=== PATIENT | female | born 1945 | race Caucasian/White ===

== ENCOUNTER 2018-01-02 15:38 | Emergency (ER) | payer OTHER ==
[~2018-01-02] VITALS: Ht 170.2 cm; Wt 91.5 kg
[~2018-01-02 15:38] MED LIST: GLCSC500400; OMEG10007 PO; SYN50 PO; [UNRECOGNIZED DRUG - OTHER]
[2018-01-02 15:57] VITALS: O2SAT 94
[2018-01-02 15:58] VITALS: Ht 170.2 cm; Wt 91.5 kg
[2018-01-02 16:05] LABS: BASO % 0.3 %; BASO ABS # 0.03 K/uL (0-0.2); EOS % 1.3 %; EOS ABS # 0.15 K/uL (0-0.5); HEMATOCRIT 45.1 % (37-47); HEMOGLOBIN 15.3 g/dL (12.0-16.0); IG# 0.03 K/uL (0.00-0.02); LYMPH % 15.2 %; LYMPH ABS # 1.73 K/uL (1.2-3.4); MEAN CELL VOLUME 95.8 fL (80-100); MEAN CORPUSCULAR HEMOGLOBIN 32.5 pg (25-34); MEAN CORPUSCULAR HGB CONC 33.9 g/dl (32-36); MEAN PLATELET VOLUME 11.6 fL (7.4-10.4); MONO % 8.1 %; MONO ABS # 0.92 K/uL (0.11-0.59); NEUT % 74.8 %; NEUT ABS # 8.49 K/uL (1.4-6.5); PLATELET COUNT 213 K/uL (130-400); RED CELL DISTRIBUTION WIDTH CV 13.6 % (11.5-14.5); RED CELL DISTRIBUTION WIDTH SD 47.9 fL (36.4-46.3); WHITE BLOOD COUNT 11.35 K/uL (4.8-10.8)
[2018-01-02] MEDS ORDERED: SODIUM CHLORIDE 0.9% 1000ML 1,000 ML IV STA (16:15)
[2018-01-02] MEDS ORDERED: MECLIZINE HCL 25 MG TAB PO STA (16:39)
[2018-01-02] MEDS ORDERED: ONDANSETRON INJ 2 MG/ML 2 ML VIAL IV STA (16:39)
[2018-01-02 16:42] LABS: ALBUMIN 3.4 gm/dl (3.4-5.0); ALKALINE PHOSPHATASE 71 U/L (45-117); ALT/SGPT 24 U/L (12-78); BLOOD UREA NITROGEN 21 mg/dl (7-18); CALCIUM 8.9 mg/dl (8.5-10.1); CARBON DIOXIDE 22 mmol/L (21-32); CKMB 0.6 ng/ml (0.5-3.6); CREATININE 1.01 mg/dl (0.60-1.20); GLUCOSE 131 mg/dl (70-99); SODIUM 139 mmol/L (136-145); TOTAL PROTEIN 7.8 gm/dl (6.4-8.2)
--- NOTE | 2018-01-02 16:47 | EMERGENCY ROOM VISIT NOTE ---
History Report prepared by Rachel: Rick Cruz Under the Supervision of: Dr. Alexandro Xiong M.D. First contact with patient: 15:39 Chief Complaint: SYNCOPE (NEAR SYNCOPE) Stated Complaint: LIGHTHEADED, NEAR SYNCOPE Nursing Triage Summary: pt arrived als from home reported pt was stretching in bed with head full tilt behind her and "almost"passed out. pt has spent several days pt has hx of siatica on the left side pt has no complaints at this time History of Present Illness The patient is a 72 year old female who presents to the Emergency Room with complaints of sudden dizziness which began this morning. The patient reports that she was completing her regular stretches this morning when she sat up and suddenly felt very stiff and lightheaded. The patient states that she has felt dizzy and lightheaded throughout the day. She notes that she feels dizzy while laying down and lightheaded while standing. The patient reports that her symptoms worsen when she sits up suddenly, but subside when she lays down for an extended period of time. She denies any worsening of her symptoms when turning form side to side. The patient notes that she has had vertigo in the past, but does not feel that her present symptoms are similar to previous episodes. She reports that she has eaten today, and took ibuprofen and tramadol last night. Source of History: patient Onset: This morning Position: other (Global. ) Quality: other (Dizziness) Timing: waxes/wanes, other Modifying Factors (Worsening): other (Standing suddenly) Modifying Factors (Relieving): rest Note: Associated Symptoms: Lightheadedness Denies: Worsening symptoms when turning from side to side. Review of Systems See HPI for pertinent positives & negatives. A total of 10 systems reviewed and were otherwise negative. Past Medical & Surgical Medical Problems: (1) Hx of vertigo Family History Family History omitted secondary to age. Social History Smoking Status: Former Smoker Marital Status: Current/Historical Medications Scheduled B-Complex Vitamins (Vitamin B Complex), 1 TAB PO DAILY Ciprofloxacin Hcl (Cipro), 500 MG PO BID Levothyroxine Sodium (Levothyroxine Sodium), 50 MCG PO DAILY Scheduled PRN Meclizine Hcl (Meclizine Hcl), 1 TAB PO TID PRN for Dizziness or Vertigo Oxycodone/Acetaminophen 5MG/325MG (Percocet 5MG/325MG), 1-2 TAB PO Q4H PRN for Pain Allergies Coded Allergies: No Known Allergies (Unverified , 07/06/11) Physical Exam Vital Signs Date Time Temp Pulse Resp B/P (MAP) Pulse Ox O2 Delivery O2 Flow Rate FiO2 01/02/18 20:20 36.7 87 16 126/80 96 01/02/18 19:21 81 16 124/81 94 Room Air 01/02/18 18:08 88 28 94 01/02/18 18:01 141/80 01/02/18 17:38 81 24 99 01/02/18 17:31 144/98 01/02/18 17:16 155/89 01/02/18 16:38 84 19 01/02/18 16:31 130/87 01/02/18 16:09 84 01/02/18 16:08 97 14 01/02/18 16:05 95 169/95 112 154/105 124 128/90 01/02/18 16:01 155/106 01/02/18 15:59 128/90 01/02/18 15:58 36.7 97 18 172/107 94 Room Air 01/02/18 15:58 154/105 01/02/18 15:57 169/95 01/02/18 15:57 94 Room Air 01/02/18 15:43 172/107 Physical Exam GENERAL: Patient is a healthy-appearing well-nourished female HEAD: Normocephalic atraumatic EYES: Ocular movements intact pupils equal and react to light OROPHARYNX mucous membranes are moist no exudates present no erythema or edema present NECK: Supple no nuchal rigidity CHEST: Good equal expansion LUNGS: Clear and equal to auscultation CARDIAC: Normal S1 and S2 ABDOMEN: Soft nontender no guarding BACK: No CVA tenderness EXTREMITIES: No pain upon palpation normal muscle strength in all groups no clubbing cyanosis or edema NEURO: Patient is following commands and answering questions appropriately. Alert and oriented x3 Cranial Nerves 2-12 grossly intact Medical Decision & Procedures ER Provider Diagnostic Interpretation: Radiology results as stated below per my review and radiologist interpretation: CHEST ONE VIEW PORTABLE CLINICAL HISTORY: Pt c/o dizziness dyspnea COMPARISON STUDY: No previous studies for comparison. FINDINGS: The bones soft tissues and hemidiaphragms are normal. The cardiomediastinal silhouette is normal. The lungs are clear. The pulmonary vasculature is normal. IMPRESSION: Negative chest. The above report was generated using voice recognition software. It may contain grammatical, syntax or spelling errors. Electronically signed by: Tang Lopez M.D. 01/02/2018 5:40 PM Dictated Date/Time: 01/02/2018 5:39 PM HEAD WITHOUT CONTRAST (CT) CT DOSE: 537.48 mGy.cm HISTORY: Mental status change Pt c/o severe dizziness TECHNIQUE: Multiaxial CT images of the head were performed without the use of intravenous contrast. A dose lowering technique was utilized adhering to the principles of ALARA. Comparison: None. Findings: The paranasal sinuses and mastoid air cells are clear. The calvarium and skull base are intact. The ventricles and sulci are within normal limits. There is no mass, hematoma, midline shift, or acute infarct. Impression: No acute intracranial abnormality. The above report was generated using voice recognition software. It may contain grammatical, syntax or spelling errors. Electronically signed by: Tang Lopez M.D. 01/02/2018 5:09 PM Dictated Date/Time: 01/02/2018 5:08 PM Laboratory Results 01/02/18 15:50 Red Blood Count 4.71, Mean Corpuscular Volume 95.8, Mean Corpuscular Hemoglobin 32.5, Mean Corpuscular Hemoglobin Concent 33.9, Mean Platelet Volume 11.6, Neutrophils (%) (Auto) 74.8, Lymphocytes (%) (Auto) 15.2, Monocytes (%) (Auto) 8.1, Eosinophils (%) (Auto) 1.3, Basophils (%) (Auto) 0.3, Neutrophils # (Auto) 8.49, Lymphocytes # (Auto) 1.73, Monocytes # (Auto) 0.92, Eosinophils # (Auto) 0.15, Basophils # (Auto) 0.03 01/02/18 15:50 01/02/18 17:55 Test 01/02/18 15:50 01/02/18 15:54 01/02/18 17:18 01/02/18 17:55 White Blood Count 11.35 K/uL (4.8-10.8) Red Blood Count 4.71 M/uL (4.2-5.4) Hemoglobin 15.3 g/dL (12.0-16.0) Hematocrit 45.1 % (37-47) Mean Corpuscular Volume 95.8 fL (80-100) Mean Corpuscular Hemoglobin 32.5 pg (25-34) Mean Corpuscular Hemoglobin Concent 33.9 g/dl (32-36) Platelet Count 213 K/uL (130-400) Mean Platelet Volume 11.6 fL (7.4-10.4) Neutrophils (%) (Auto) 74.8 % Lymphocytes (%) (Auto) 15.2 % Monocytes (%) (Auto) 8.1 % Eosinophils (%) (Auto) 1.3 % Basophils (%) (Auto) 0.3 % Neutrophils # (Auto) 8.49 K/uL (1.4-6.5) Lymphocytes # (Auto) 1.73 K/uL (1.2-3.4) Monocytes # (Auto) 0.92 K/uL (0.11-0.59) Eosinophils # (Auto) 0.15 K/uL (0-0.5) Basophils # (Auto) 0.03 K/uL (0-0.2) RDW Standard Deviation 47.9 fL (36.4-46.3) RDW Coefficient of Variation 13.6 % (11.5-14.5) Immature Granulocyte % (Auto) 0.3 % Immature Granulocyte # (Auto) 0.03 K/uL (0.00-0.02) Anion Gap 12.0 mmol/L (3-11) Est Creatinine Clear Calc Drug Dose 60.2 ml/min Estimated GFR () 65.3 Estimated GFR (Non- 56.4 BUN/Creatinine Ratio 21.2 (10-20) Calcium Level 8.9 mg/dl (8.5-10.1) Total Bilirubin 0.6 mg/dl (0.2-1) Alanine Aminotransferase (ALT/SGPT) 24 U/L (12-78) Alkaline Phosphatase 71 U/L (45-117) Creatine Kinase MB 0.6 ng/ml (0.5-3.6) Creatine Kinase MB Ratio (0-3.0) Troponin I < 0.015 ng/ml (0-0.045) Total Protein 7.8 gm/dl (6.4-8.2) Albumin 3.4 gm/dl (3.4-5.0) Thyroid Stimulating Hormone (TSH) 2.580 uIu/ml (0.300-4.500) Bedside Glucose 124 mg/dl (70-90) Urine Color YELLOW Urine Appearance CLEAR (CLEAR) Urine pH 5.0 (4.5-7.5) Urine Specific [place] 1.009 (1.000-1.030) Urine Protein NEG (NEG) Urine Glucose (UA) NEG (NEG) Urine Ketones NEG (NEG) Urine Occult Blood NEG (NEG) Urine Nitrite NEG (NEG) Urine Bilirubin NEG (NEG) Urine Urobilinogen NEG (NEG) Urine Leukocyte Esterase LARGE (NEG) Urine WBC (Auto) 10-30 /hpf (0-5) Urine RBC (Auto) 0-4 /hpf (0-4) Urine Hyaline Casts (Auto) 1-5 /lpf (0-5) Urine Epithelial Cells (Auto) 20-30 /lpf (0-5) Urine Bacteria (Auto) 1+ (NEG) Direct Bilirubin 0.1 mg/dl (0-0.2) Aspartate Amino Transf (AST/SGOT) 13 U/L (15-37) Total Creatine Kinase 30 U/L (26-192) Labs reviewed by ED physician. Medications Administered Medications (Trade) Dose Ordered Sig/Neel Route Start Time Stop Time Status Last Admin Dose Admin Sodium Chloride 1,000 ml @ 999 mls/hr Q1H1M STAT IV 01/02/18 16:15 01/02/18 17:15 DC 01/02/18 16:15 999 MLS/HR Meclizine HCl (Antivert Tab) 25 mg NOW STAT PO 01/02/18 16:39 01/02/18 16:41 DC 01/02/18 16:39 25 MG Ondansetron HCl (Zofran Inj) 4 mg NOW STAT IV 01/02/18 16:39 01/02/18 16:41 DC 01/02/18 16:39 4 MG Ceftriaxone Sodium (Rocephin Inj) 1 gm NOW STAT IV 01/02/18 18:04 01/02/18 18:05 DC 01/02/18 18:04 1 GM Lorazepam (Ativan Inj) 0.5 mg NOW STAT IV 01/02/18 18:08 01/02/18 18:09 DC 01/02/18 18:22 0.5 MG Hydromorphone HCl (Dilaudid Inj) 1 mg NOW STAT IV 01/02/18 19:50 01/02/18 19:51 DC 01/02/18 19:57 1 MG Dexamethasone Sodium Phosphate (Dexamethasone Inj Pf) 10 mg STK-MED ONCE .ROUTE 01/02/18 19:55 01/02/18 19:56 DC 01/02/18 19:58 10 MG ECG Indication: other (Dizziness) Rate (beats per minute): 99 Rhythm: normal sinus Findings: other (Normal Sinus Rhythym. Rate of 99. Anterior Infarct. No st elevations or depressions. ) ED Course 162: Past medical records reviewed. The patient was evaluated in room A11. A complete history and physical examination was performed. 1615: Ordered Sodium Chloride 1000 ml @ 999 mls/hr 1639: Ordered Zofran Inj 4mg IV and Meclizine HCL 25mg PO. 1730: I reevaluated the patient. On exam I performed a Kaylyn-Hallpike maneuver which was positive on the left side. 1803: Ordered Rocephin Inj 1 gm IV. 1807: Ordered Ativan Inj 0.5 mg IV. 1934:: Upon reexamination the patient is resting in bed. I discussed results and treatment plan with the patient. She verbalizes agreement and understanding. The patient is ready for discharge. Medical Decision Differential diagnosis: Etiologies such as benign positional vertigo, dehydration, hypovolemia, anemia, tumor, infection, hypoglycemia, electrolyte abnormalities, cardiac sources, intracerebral event, toxicologic, neurologic, as well as others were entertained. This is a 72-year-old female who presents emergency department complaining of a number of complaints. The patient reports she was doing exercises on her bed today when she lowered her head back and developed dizziness. The dizziness appears to be consistent with vertigo as she has a positive Sturbridge-Hallpike maneuver on the right. In addition the patient has a history of vertigo in the past. For this reason she was given both Ativan as well as meclizine. Repeat examination revealed improvement patient's symptoms. In addition the patient also appears to have a urinary tract infection and has a normal CAT scan of the head. After sometime the patient was ambulated by nursing however the patient is not complaining of sciatic pain for this reason the patient was given Decadron as well as Dilaudid. I recommended that the patient follow-up with orthopedics for her sciatica. Patient was in agreement with the treatment plan. Medication Reconcilliation Current Medication List: was personally reviewed by me Blood Pressure Screening Patient's blood pressure: Elevated blood pressure Blood pressure disposition: Elevated BP felt to be situational Impression Primary Impression: Vertigo Scribe Attestation The scribe's documentation has been prepared under my direction and personally reviewed by me in its entirety. I confirm that the note above accurately reflects all work, treatment, procedures, and medical decision making performed by me. Departure Information Dispostion Home / Self-Care Prescriptions Oxycodone/Acetaminophen 5MG/325MG (PERCOCET 5MG/325MG) Tab 1-2 TAB PO Q4H Y for Pain, #14 TAB Prov: Alexandro Xiong MD 01/02/18 Meclizine Hcl (MECLIZINE HCL) 25 Mg Tab 1 TAB PO TID Y for Dizziness or Vertigo for 10 Days, #30 TAB Prov: Alexandro Xiong MD 01/02/18 Ciprofloxacin Hcl (CIPRO) 500 Mg Tab 500 MG PO BID for 7 Days, #14 TAB Prov: Alexandro Xiong MD 01/02/[address] M.D. (PCP) Forms HOME CARE DOCUMENTATION FORM, IMPORTANT VISIT INFORMATION Patient Instructions My [facility] Additional Instructions Increase fluids next 48 hours You have been examined and treated today on an emergency basis only. This is not a substitute for, or an effort to provide, complete comprehensive medical care. It is impossible to recognize and treat all injuries or illnesses in a single emergency department visit. It is therefore important that you follow up closely with Dr Lane. Call as soon as possible for an appointment. Thank you for your time and consideration. I look forward to speaking with you again soon. Please don't hesitate to call us if you have any questions.
[2018-01-02] MEDS ORDERED: B-COTAB18 PO (16:53)
[2018-01-02] MEDS ORDERED: LEVO50TA6 PO (16:53)
--- NOTE | 2018-01-02 17:11 | DIAGNOSTIC IMAGING REPORT ---
HEAD WITHOUT CONTRAST (CT) CT DOSE: 537.48 mGy.cm HISTORY: Mental status change Pt c/o severe dizziness TECHNIQUE: Multiaxial CT images of the head were performed without the use of intravenous contrast. A dose lowering technique was utilized adhering to the principles of ALARA. Comparison: None. Findings: The paranasal sinuses and mastoid air cells are clear. The calvarium and skull base are intact. The ventricles and sulci are within normal limits. There is no mass, hematoma, midline shift, or acute infarct. Impression: No acute intracranial abnormality. The above report was generated using voice recognition software. It may contain grammatical, syntax or spelling errors. Electronically signed by: Tang Lopez M.D. 01/02/2018 5:09 PM Dictated Date/Time: 01/02/2018 5:08 PM
--- NOTE | 2018-01-02 17:42 | DIAGNOSTIC IMAGING REPORT ---
CHEST ONE VIEW PORTABLE CLINICAL HISTORY: Pt c/o dizziness dyspnea COMPARISON STUDY: No previous studies for comparison. FINDINGS: The bones soft tissues and hemidiaphragms are normal. The cardiomediastinal silhouette is normal. The lungs are clear. The pulmonary vasculature is normal. IMPRESSION: Negative chest. The above report was generated using voice recognition software. It may contain grammatical, syntax or spelling errors. Electronically signed by: Tang Lopez M.D. 01/02/2018 5:40 PM Dictated Date/Time: 01/02/2018 5:39 PM
[2018-01-02] MEDS ORDERED: CEFTRIAXONE SOD INJ 1 GM ADDVIAL IV STA (18:04)
[2018-01-02] MEDS ORDERED: LORAZEPAM 2 MG/ML 1 ML VIAL IV STA (18:08)
[2018-01-02 18:21] LABS: POTASSIUM 3.9 mmol/L (3.5-5.1)
[2018-01-02] MEDS ORDERED: MECL1TAB42 PO (19:29)
[2018-01-02] MEDS ORDERED: CIPR-255 PO (19:29)
[2018-01-02] MEDS ORDERED: DEXAMETHASONE INJ 10 MG in SYRINGE 0 ML IV STA (19:50)
[2018-01-02] MEDS ORDERED: HYDROmorphone INJ 1 MG/ML SYR IV STA (19:50)
[2018-01-02] MEDS ORDERED: OXYC-57 PO (19:52)
[2018-01-02] MEDS ORDERED: DEXAMETHASONE **PF** INJ 10 MG/ML VIAL ONE (19:55)
[2018-01-02 20:20] VITALS: BP 126/80; PULSE 87; TEMP 36.7; O2SAT 96
== END 2018-01-02 20:21 | disposition home or self-care (01) ==
LOC: EDBD 15:38 → C.EDA 15:39
DX: R42 Dizziness and giddiness (principal); Z87.891 Personal history of nicotine dependence; M54.40 Lumbago with sciatica, unspecified side

== ENCOUNTER 2021-10-14 05:06 | Observation (INO) ==
--- NOTE | 2021-09-15 11:12 | PAT Medication Instructions ---
Medication Instructions Date of Service September 15, 2021 Home Medications acetaminophen 500 mg tablet 1,000 mg PO Q6H PRN atorvastatin 40 mg tablet 40 mg PO QAM cholecalciferol (vitamin D3) 125 mcg (5,000 unit) tablet (Vitamin D3) 125 mcg PO QAM levothyroxine 50 mcg tablet 50 mcg PO QAM vitamin B complex 1 cap PO QAM vitamins A,C,E-ezju-nprwqo 14,320 unit-226 mg-200 unit capsule (PreserVision AREDS) 1 cap PO BID STOP taking 2 weeks before surgery vitamins A,C,R-phob-jrqfao 14,320 unit-226 mg-200 unit capsule (PreserVision AREDS) 1 cap PO BID DO NOT take the morning of surgery cholecalciferol (vitamin D3) 125 mcg (5,000 unit) tablet (Vitamin D3) 125 mcg PO QAM vitamin B complex 1 cap PO QAM Take morning of surgery With a small sip of water, OTHERWISE NOTHING TO EAT OR DRINK AFTER MIDNIGHT: acetaminophen 500 mg tablet 1,000 mg PO Q6H PRN (okay to take up to 4 hours prior to surgery if needed) atorvastatin 40 mg tablet 40 mg PO QAM levothyroxine 50 mcg tablet 50 mcg PO QAM Take evening before surgery acetaminophen 500 mg tablet 1,000 mg PO Q6H PRN (if needed) Other Notes If you have any questions please call us at [phone] or [phone] or [phone] or [phone]
--- NOTE | 2021-09-17 10:30 | Anesthesiology Consultation ---
Date of Service September 17, 2021 Assessment & Plan (1) Encounter for pre-operative examination: - Outpatient joint assessment: Patient is currently scheduled for inpatient pathway. If re-evaluated pending system levels during current pandemic/surgeon wishes to request outpatient pathway, patient is medically acceptable candidate for outpatient joint program from anesthesia standpoint pending surgeon's office assessment of pt motivation/support/completion of same day joint program preop requirements. *Patient expresses her also has significant arthritis and limited ambulation due to joint dysfunction. - COVID screening: Per assessment on 09/17/2021: Travel screen returned from [place] 9 days ago, no known COVID-19 positive contacts or current COVID-19 related symptoms. Patient vaccinated. Surgeon arranging preop COVID testing, scheduled 10/10/2021. Awaiting results. Chart Review Chart Review: Acceptable Risk for Surgery and Patient seen in Pre Admission Testing Teaching & Discussion Pre-Anesthesia Teaching/Discussion Notes: Instructed NPO after midnight before surgery, except medications with 15 cc of water. Medication instructions provided according to the PAT guidelines. History Surgery Operation Date: 10/14/21 07:15 Proposed Procedures p Right Total Knee Arthroplasty - Rashawn Blanco, Height/Weight Height: 5 ft 7 in Weight: 95.2 kg Allergies Allergy/AdvReac Type Severity Reaction Status Date / Time No Known Allergies Allergy Verified 09/15/21 09:01 Medications Home Medications Medication Instructions Recorded Confirmed Last Taken acetaminophen 500 mg tablet 1,000 mg PO Q6H PRN 09/15/21 09/15/21 Unknown atorvastatin 40 mg tablet 40 mg PO QAM 09/15/21 09/15/21 Unknown cholecalciferol (vitamin D3) 125 125 mcg PO QAM 09/15/21 09/15/21 Unknown mcg (5,000 unit) tablet (Vitamin D3) levothyroxine 50 mcg tablet 50 mcg PO QAM 09/15/21 09/15/21 Unknown vitamin B complex 1 cap PO QAM 09/15/21 09/15/21 Unknown vitamins A,C,G-wjur-pwoico 14,320 1 cap PO BID 09/15/21 09/15/21 Unknown unit-226 mg-200 unit capsule (PreserVision AREDS) Past Medical History Medical History Allergic rhinitis reports intermittent cough alleviated with OTC meds, follows with PCP, denies change or worsening Anxiety Arthritis Hyperlipidemia Hypothyroidism Vertigo Hx, occasional flares, last > 1 yr ago Patient denies h/o stroke, seizures, heart attack, heart failure, DM, HTN, blood clots or blood transfusions. Exercise / Class Metabolic Activity II 4-5 Yardwork/Stairs/Walk up hill (no CP or SOB with 1 FOS) Past Family History Family History Brother Family history of diabetes mellitus Past Surgical History Surgical History History of colonoscopy x2 History of herniorrhaphy AGE 7 Past Anesthesia History No Hx of Anesthesia Complications and No Family Hx of Anesthesia Complications History of PONV No Hx of PONV and No Hx of Motion Sickness Social History Smoking Status: Former smoker Do You Dip or Chew Tobacco: No Smoking End Date: QUIT 40+ YRS AGO Hx Alcohol Use: Yes Alcohol type: wine alcohol intake frequency: a few times a week Hx Substance Use: No Review of Systems Snoring per pt's daughter, denies witnessed apneas or sleep studies. Patient denies chest pain, shortness of breath, dyspnea on exertion, reflux, fever, chills, wheezing, or palpitations. Physical Exam Vital Signs Vitals BP 135/81 P 85 TEMP 97.4 SP02 96% on RA RESP 16 Physical Full cervical extension range of motion without pain TMD 3.5 finger breaths Mallampati Score 1 Dentition: intact, missing back right lower tooth, caps/crowns upper right side, upper left side and two implants bottom left, denies loose or chipped teeth Lungs: normal respiratory effort. Clear throughout to auscultation, no adventitious breath sounds Cardiac: regular rate and rhythm, no murmurs noted Carotid arteries: negative bruit bilat Extremities: no distal extremity edema Lab Results Anesthesia Preop Results Results Anesthesia Widget: WBC 6.06 K/uL (4.8-10.8) 09/17/21 Hgb 13.8 g/dL (12.0-16.0) 09/17/21 Hct 41.3 % (37-47) 09/17/21 Plt 199 K/uL (130-400) 09/17/21 Na 142 mmol/L (136-145) 09/17/21 K 3.6 mmol/L (3.5-5.1) 09/17/21 Cl 110 mmol/L (98-107) H 09/17/21 CO2 26 mmol/L (21-32) 09/17/21 BUN 15 mg/dl (7-18) 09/17/21 Creat 0.77 mg/dl (0.6-1.2) 09/17/21 Glucose Level 104 mg/dl (70-99) H 09/17/21 PT 11.0 Seconds (9.0-12.0) 09/17/21 PTT 28.8 Seconds (21.0-31.0) 09/17/21 INR 1.1 (0.9-1.1) 09/17/21 Blood Type O Positive 09/17/21 Antibody Screen NEGATIVE 09/17/21 Testing Electrocardiogram Date: 09/17/21 Normal sinus rhythm, rate 78 bpm. Possible Anterior infarct (cited on or before 02-JAN-2018) Abnormal ECG When compared with ECG of 02-JAN-2018 15:43, No significant change was found Confirmed by Bony Cordova. Chest X-Ray Date: 09/17/21 No acute chest disease.
[2021-10-14] MEDS ORDERED: LR 60ML/HR IV SCH (06:00)
[2021-10-14] MEDS ORDERED: ROPIVACAINE 0.5% HCL/PF 150 MG, BUPIVACAINE 0.75% MPF 20 ML, EPINEPHrine 30MG/30ML (OR ... INFIL SCH (06:00)
[2021-10-14] MEDS ORDERED: LR 500ML BOLUS, THEN 15ML/HR IV SCH (06:00)
[2021-10-14] MEDS ORDERED: TRANEXAMIC ACID 1,000 MG **IV Pre-op IV SCH (06:00)
[2021-10-14] MEDS ORDERED: ceFAZolin 2000MG 2,000 MG/15 ML SYR IV SCH (06:00)
[2021-10-14] MEDS ORDERED: FAMOTIDINE 20 MG TAB PO SCH (06:00)
[2021-10-14] MEDS ORDERED: GABAPENTIN 300 MG CAP PO SCH (06:00)
[2021-10-14] MEDS ORDERED: dexAMETHasone 4 MG TAB PO SCH (06:00)
[2021-10-14] MEDS ORDERED: TRANEXAMIC ACID 1,000 MG **IV Intra-op IV SCH (06:00)
[2021-10-14] MEDS ORDERED: ACETAMINOPHEN 500 MG TAB PO SCH (06:00)
--- NOTE | 2021-10-14 06:19 | History & Physical Report ---
Date of Service October 14, 2021 Assessment & Plan (1) Osteoarthritis of right knee: We will proceed with a right total knee arthroplasty. Postoperatively she will be started on aspirin for DVT prophylaxis and she will be part of her outpatient joint protocol. She will be discharged to home on oral pain medications. She plans to use [employer] starting tomorrow. History of Present Illness Chief Complaint: Osteoarthritis of the right knee. Primary Care Provider: Manasa Moreno DO Jaqueline is a pleasant 76-year-old female has been doing with chronic worsening right knee pain. She cannot keep up with her grandkids. She is becoming more more frustrated with her knee. X-rays and clinical examination have been diagnostic for advanced osteoarthritis of the right knee. After failing years of conservative treatment, including multiple injections, she has elected proceed with a right total knee arthroplasty. Allergies Allergy/AdvReac Type Severity Reaction Status Date / Time No Known Allergies Allergy Verified 10/14/21 05:26 Home Medications Medication Instructions Recorded Confirmed Type acetaminophen 500 mg tablet 1,000 mg PO Q6H PRN 09/15/21 10/14/21 History atorvastatin 40 mg tablet 40 mg PO QAM 09/15/21 10/14/21 History cholecalciferol (vitamin D3) 125 125 mcg PO QAM 09/15/21 10/14/21 History mcg (5,000 unit) tablet (Vitamin D3) levothyroxine 50 mcg tablet 50 mcg PO QAM 09/15/21 10/14/21 History vitamin B complex 1 cap PO QAM 09/15/21 10/14/21 History vitamins A,C,H-sorl-ijjxiq 14,320 1 cap PO BID 09/15/21 10/14/21 History unit-226 mg-200 unit capsule (PreserVision AREDS) Wheeled Walker #1 ea 09/25/21 Rx Past Med/Surg History Medical History Allergic rhinitis reports intermittent cough alleviated with OTC meds, follows with PCP, denies change or worsening Anxiety Arthritis Hyperlipidemia Hypothyroidism Vertigo Hx, occasional flares, last > 1 yr ago Surgical History History of colonoscopy x2 History of herniorrhaphy AGE 7 Family History Brother Family history of diabetes mellitus Social History Smoking Status: Former smoker Smoking End Date: QUIT 40+ YRS AGO; Second Hand Exposure: Yes (PARENTS SMOKED); Do You Dip or Chew Tobacco: No; Hx Alcohol Use: Yes Alcohol type: wine Hx Substance Use: No Preferred Language: Marshallese Communication Ability: Effective Scheduling Agent Required: No Beliefs That Will Affect Care: None Current Living Situation: Spouse current occupational status: retired Other Information That Helps Us Care for You: No Feels Safe at Home: Yes Safety Concerns: Feels Safe At This Time Assistive Devices: Glasses and Special Shoe Assistive Devices Comment: IMPLANTS LOWER SIDES/ORTHOTICS Review of Systems All systems reviewed & are unremarkable except as noted in HPI & below. Physical Exam On physical examination of the right knee, she has good motion of 0 to 120 degrees. She has no instability. She has pain of the distal medial femoral condyle and over the medial joint line Constitutional WD/WN, vitals as above Eyes PERRL, conjunctivae normal, anicteric sclerae ENMT external ear and nose normal, oropharynx normal Neck trachea midline, no thyromegaly Respiratory normal respiratory effort Cardiovascular RRR, no murmur, no edema Gastrointestinal (Abdomen) normal bowel sounds, soft, nontender, no hepatosplenomegaly Psychiatric A+Ox3, euthymic affect Results & Data Results & Data Laboratory Results . Diagnostic Findings X-rays of the right knee show advanced osteoarthritis with joint space narrowing, osteophyte formation, and [id number] articulation. PG Care Time/CCT Total # of Minutes Spent Total Time Spent with Patient: Total time spent is greater than 50% in coordination of care (as documented) at patient's floor/unit and/or counseling patient: Coding Level of Care Code None Diagnoses Osteoarthritis of right knee M17.11
[2021-10-14] MEDS ORDERED: ROPIVACAINE 0.5% 5 MG/ML 30 ML VIAL ONE (06:21)
[2021-10-14] MEDS ORDERED: LIDOCAINE 2%/EPINEPHRINE 1:200,000 20 ML SDV ONE (06:21)
[2021-10-14] MEDS ORDERED: ORTHO JOINT ANESTHETIC ONE (06:29)
[2021-10-14] MEDS ORDERED: MIDAZOLAM HCL 1 MG/ML 2ML VIAL ONE (06:36)
[2021-10-14] MEDS ORDERED: KETAMINE 50 MG/5 ML SYRINGE ONE (06:37)
[2021-10-14] MEDS ORDERED: ePHEDrine sulfate 50 MG/ML AMP IV PRN (07:04)
[2021-10-14] MEDS ORDERED: ATROPINE SULFATE 0.1 MG/ML 10ML SYR IV PRN (07:04)
[2021-10-14] MEDS ORDERED: PROMETHAZINE HCL 6.25 MG in SODIUM CHLORIDE 0.9% 50 ML IV PRN (07:04)
[2021-10-14] MEDS ORDERED: ONDANSETRON INJ 2 MG/ML 2 ML VIAL IV PRN ×2 (07:04→16:53)
[2021-10-14] MEDS ORDERED: HYDROmorphone INJ 1 MG/ML SYRINGE IV PRN (07:04)
[2021-10-14] MEDS ORDERED: KETOROLAC 30 MG/ML VIAL IV PRN (07:04)
[2021-10-14] MEDS ORDERED: GLYCOPYRROLATE 0.2 MG/ML VIAL ONE (07:26)
[2021-10-14] MEDS ORDERED: PROPOFOL IV EMULSION 10 MG/ML 20 ML VIAL IV ONE (07:26)
[2021-10-14] MEDS ORDERED: ONDANSETRON INJ 2 MG/ML 2 ML VIAL ONE (07:26)
[2021-10-14] MEDS ORDERED: LIDOCAINE 2% 2 ML VIAL/AMP(20MG/ML) INFIL ONE (07:26)
[2021-10-14] MEDS ORDERED: ESMOLOL HCL INJ 10 MG/ML 10ML VIAL IV ONE (07:49)
[2021-10-14] MEDS ORDERED: KETOROLAC 30 MG/ML VIAL ONE (08:24)
--- NOTE | 2021-10-14 08:26 | Operative Report ---
PG Post Operative Report Pre & Post Diagnosis Operation Date: 10/14/21 07:00 Pre-Op Diagnosis: Degenerative Joint Disease Right Knee Post-Op Diagnosis: Degenerative Joint Disease Right Knee I identified the patient and participated in the time-out.: Yes Procedure Operation Date: 10/14/21 07:00 Actual Procedures p Right Total Knee Arthroplasty, Cemented(Right) - Rashawn Blanco DO Surgeon Rashawn Blanco DO [employer] Rashawn Donato PAC Estimated Blood Loss 10 Findings Consistent with Post-Op Diagnosis Specimens Right femoral and tibial bone Complications none Disposition Disposition: Recovery Room Indications Jaqueline is a pleasant 76-year-old female who is been dealing with chronic increasing right knee pain. X-rays and clinical examination have been diagnostic for advanced osteoarthritis of the right knee. After failing conservative treatment, she has elected to proceed with a right total knee arthroplasty. Description of Procedure Implants used: I used a Titus Persona total knee arthroplasty system with a size 8 standard PS femur, E tibia with a 30 mm stem, 28 oval patella, and a size 12 CPS bearing. All components were cemented in place with Biomet cement. Jaqueline arrived [facility] for the above procedure. She was seen in the preoperative holding area and the operative extremity was identified and signed. She was given a preoperative antibiotic, TXA, and epidural anesthetic and an adductor nerve block. She was taken back to the operating room and laid on the table in supine position. She was given basic sedation. The operative knee was then prepped and draped in sterile fashion. A timeout was done, and the patient and the operative extremity was properly identified. A midline incision was made directly over the patella. Dissection was taken down to the extensor mechanism. A subvastus arthrotomy was used. The medial retinaculum was released and the fat pad was mostly excised. The knee was flexed and the ACL, PCL, and meniscus were removed. A drill was sent down the center of the femoral canal followed by an intramedullary silvia. Off that silvia a distal femoral cutting block was placed. 9 mm was resected off the distal femur at 5 of valgus. A posterior referencing AP sizing guide was then placed on the distal femur. The femur measured to be a size 8. 2 drill holes were placed in 3 of external rotation. A 4-in-1 cutting block was then impacted into place. Anterior, posterior, and chamfer cuts were then made. The proximal tibia was then exposed. An external tibial alignment guide was placed. A tibial cut guide was then anchored in place and the proximal tibia was then resected. The posterior aspect of the knee was then opened up and any additional meniscus fragments and osteophytes were removed. The tibia measured to be a size D. The tibial plate was then placed in the appropriate rotation and the tibia was drilled and punched. Trial components were then placed. I used a size 12 CPS polyethylene insert. The knee was brought through a full range of motion and felt to be stable. The peg holes for the femoral component were then drilled. The patella was then everted and 9 mm was resected off the posterior aspect of the patella. The patella measured to be a size 28 oval. 3 peg holes were then drilled. A trial patella was placed. The knee was once again brought through a full range of motion and felt to be stable. Trial components were then removed. The surrounding soft tissues were injected with 100 cc of an orthopedic pain control cocktail. All components were then cemented into place with Biomet cement. The final polyethylene insert was then snapped into place. Once cement was dry the tourniquet was deflated. Hemostasis was obtained. A dilute betadyne lavage was then done for 3 minutes. The joint was then irrigated with normal saline solution. The subvastus arthrotomy was then closed with #1 Vicryl suture. The skin was closed with 2-0 Vicryl, 3-0V lock suture, and christine. A soft compressive dressing was placed. She was then transferred to a hospital bed and taken to the postanesthesia care unit in stable condition. She tolerated the procedure well. Rashawn Donato PA-C, was present for the entire procedure. He was critical for patient positioning, prepping, draping, retraction exposure, wound closure and application of sterile dressing. I attest to the content of the Intraoperative Record and any orders documented therein. Any exceptions are noted below.
--- NOTE | 2021-10-14 09:07 | XRay Report ---
XR knee RT 1 or 2V routine CLINICAL HISTORY: Status post right total knee replacement. COMPARISON STUDY: No previous studies for comparison. TECHNIQUE: 2 right knee views FINDINGS: The patient is status post total knee replacement. The prosthetic components are in anatomi c alignment with no acute abnormality seen. Minimal air is present within the soft tissues from the p rocedure. Skin christine are seen anteriorly. IMPRESSION: Status post total knee replacement ACT 112: Negative or not required by law. Electronically signed by: Leopoldo Lopez M.D. 10/14/2021 9:06 AM
--- NOTE | 2021-10-14 09:18 | Anesthesia Procedure Note ---
Date of Service October 14, 2021 Anesthesia Post Epidural Note Vital Signs Vital Signs: Temp Pulse Resp BP Pulse Ox 36.9 C 82 14 108/76 96 10/14/21 09:15 10/14/21 09:15 10/14/21 09:15 10/14/21 09:15 10/14/21 09:15 Notes Mental Status: alert / awake / arousable and participated in evaluation Nausea / Vomiting: adequately controlled Pain: adequately controlled Airway Patency, RR, SpO2: stable & adequate BP & HR: stable & adequate Hydration State: stable & adequate Neuraxial Anesthesia: was administered and sensory block is resolving Anesthetic Complications: no major complications apparent Epidural: Removed without complications and With tip intact
--- NOTE | 2021-10-14 09:18 | Anesthesiology Progress Note ---
Date of Service October 14, 2021 Anesthesia Post Procedure Vital Signs Vital Signs: Temp Pulse Pulse Resp BP Pulse Ox 10/14/21 09:05 96 H 16 117/78 95 10/14/21 08:55 93 H 18 130/73 94 10/14/21 08:45 89 16 108/53 L 94 10/14/21 08:35 36.1 C L 98 H 16 125/71 91 10/14/21 06:00 36.5 C 75 18 161/80 H 95 10/14/21 05:20 36.5 C 85 18 158/88 H 95 Transfer of Care Handoff Completed per policy Notes Mental Status: alert / awake / arousable Patient Amnestic to Procedure: Yes Nausea / Vomiting: adequately controlled Pain: adequately controlled Airway Patency, RR, SpO2: stable & adequate BP & HR: stable & adequate Hydration State: stable & adequate Anesthetic Complications: no major complications apparent
[2021-10-14] MEDS ORDERED: bisacodyL 10 MG SUPP PR PRN (16:53)
[2021-10-14] MEDS ORDERED: NALOXONE HCL 0.4 MG/1 ML VIAL/CARP IV PRN (16:53)
[2021-10-14] MEDS ORDERED: HYDROmorphone INJ 0.5 MG/0.5 ML SYR IV PRN (16:53)
[2021-10-14] MEDS ORDERED: MAGNESIUM HYDROXIDE SUSP 30 ML UDC PO PRN (16:53)
[2021-10-14] MEDS ORDERED: METOCLOPRAMIDE HCL INJ 5 MG/ML 2 ML VIAL IV PRN (16:53)
[2021-10-14] MEDS ORDERED: oxyCODONE HCL IR 5 MG TAB (IMMEDIATE RELEASE) PO PRN (16:53)
[2021-10-14] MEDS: SODIUM CHLORIDE 0.9% 1000ML 1,000 ML IV SCH (18:40)
[2021-10-14] MEDS: KETOROLAC TROMETHAMINE 15 MG/ML VIAL IV SCH ×2 (18:40→23:09)
[2021-10-14] MEDS: DOCUSATE SODIUM 100 MG CAP PO SCH (20:35)
[2021-10-14] MEDS: ceFAZolin 2000MG 2,000 MG/15 ML SYR IV SCH (20:35)
[2021-10-14] MEDS: ASPIRIN 81 MG ECTAB PO SCH (20:35)
[2021-10-14] MEDS ORDERED: SENNA 8.6 MG TAB PO SCH (21:00)
[2021-10-14] MEDS: oxyCODONE/ACETAMINOPHEN 5mg/325mg TAB PO PRN (23:09)
[2021-10-15] MEDS: SODIUM CHLORIDE 0.9% 1000ML 1,000 ML IV SCH (03:54)
[2021-10-15] MEDS: ceFAZolin 2000MG 2,000 MG/15 ML SYR IV SCH (03:55)
[2021-10-15] MEDS: oxyCODONE/ACETAMINOPHEN 5mg/325mg TAB PO PRN (04:19)
[2021-10-15] MEDS: KETOROLAC TROMETHAMINE 15 MG/ML VIAL IV SCH (06:14)
--- NOTE | 2021-10-15 06:42 | Orthopedic Progress Note ---
Date of Service October 15, 2021 Assessment & Plan (1) Status post right knee replacement: Overall she is doing well. She has been up and ambulating to the bathroom. She regained the dorsiflexion of her right foot. She will be seen by physical therapy today for ambulation and range of motion exercises. She is on aspirin for DVT prophylaxis. She can be discharged home later today. She will follow-up with orthopedics in 2 weeks. Zoran Parsons was seen and examined at bedside this morning. Overall she is doing very well. She regained the dorsiflexion of her right foot. She has no complaints. Review of Systems All systems reviewed & are unremarkable except as noted in HPI & below. Physical Exam On physical examination of the right knee, the dressing is clean and dry. An ice pack is in place. She has active dorsiflexion plantarflexion of her right ankle.. Results & Data Results & Data Laboratory Results . Diagnostic Findings Postoperative x-rays of the right knee show the prosthesis to be in anatomic alignment without any evidence of fracture, dislocation, or loosening. PG Care Time/CCT Total # of Minutes Spent Total Time Spent with Patient: Total time spent is greater than 50% in coordination of care (as documented) at patient's floor/unit and/or counseling patient: Coding Level of Care Code 40035 Post Operative Follow-Up Diagnoses Status post right knee replacement Z96.651
--- NOTE | 2021-10-15 06:43 | Discharge Summary ---
Date of Service October 15, 2021 Admission HPI (Per Admitting) Jaqueline is a pleasant 76-year-old female has been doing with chronic worsening right knee pain. She cannot keep up with her grandkids. She is becoming more more frustrated with her knee. X-rays and clinical examination have been diagnostic for advanced osteoarthritis of the right knee. After failing years of conservative treatment, including multiple injections, she has elected proceed with a right total knee arthroplasty. Admission Exam (Per Admitting) On physical examination of the right knee, she has good motion of 0 to 120 degrees. She has no instability. She has pain of the distal medial femoral condyle and over the medial joint line Principal Diagnosis Same as "Discharge Diagnosis" noted below under Discharge Instructions. Discharge Exam On physical examination of the right knee, the dressing is clean and dry. An ice pack is in place. She has active dorsiflexion plantarflexion of her right ankle.. Discharge Data Procedures Performed Operation Date: 10/14/21 07:00 Actual Procedures p Right Total Knee Arthroplasty, Cemented(Right) - Rashawn Blanco DO Ordered Studies 10/14/21 05:00 US - OR guided needle placemen Routine Hospital Course (1) Status post right knee replacement: On October 14, [address] [facility] and underwent a right knee replacement without complication. She had an epidural anesthetic and a right adductor block. Postoperatively she was supposed to be part of our outpatient joint protocol. Unfortunately she was having difficulty with dorsiflexion of her right foot. She was unable to participate with therapy because of that. She was then admitted overnight. On postop day #1 dorsiflexion returned in her foot. Her vital signs were stable and her pain was well controlled. She was able to participate well with physical therapy doing ambulation and range of motion exercises. She was then discharged home. She will follow-up with orthopedics in 2 weeks. PG Care Time/CCT Total # of Minutes Spent Total Time Spent with Patient: Total time spent is greater than 50% in coordination of care (as documented) at patient's floor/unit and/or counseling patient: Discharge Plan Discharge Items Reason For Visit: DJD Right Knee Discharge Diagnosis: Right knee replacement Activity: As commented below Call non-emergency contact if: your wound has increased redness and your wound has increased drainage Follow-up/Referrals: [facility] [Outside] (as per surgeon's office) Manasa Moreno, DO [Primary Care Provider] - Addtl Attending Provider Instructions: Activity and Therapy Recommendations: * If you are using [facility] then therapy will be provided at your home until they feel you have accomplished all of your goals. * If you are using [facility] then Physical Therapy will be provided until they feel you are ready to start Outpatient Physical Therapy. * If you are not using home therapy then Outpatient Physical Therapy should start about 3-5 days from your day of surgery. Therapy will last about 6-10 weeks * It is important not to put a pillow under your knee when you are relaxing or sleeping. It is just as important to make sure you are getting your knee perfectly straight as it is to regain your knee bend. * You were shown a series of exercises in the hospital. Do these exercises three times each day including the exercises you were shown in physical therapy. * Get up and walk several times each day. For the first four weeks, try not to stand or walk for more than one hour at a time. If you do stand or walk for more than one hour, you will not hurt anything, but your leg will likely swell. * As you feel comfortable, you may change from the walker or crutches to a cane and then to independent walking. Medications: * Narcotic You will likely be sent home from the hospital with a prescription for the narcotic pain medication that worked best throughout your stay. * Aspirin Most patients will be required to take Aspirin 81mg twice a day for 6 weeks after surgery. This is obtained [id number] and a prescription is not necessary. * Other medications may be prescribed for specific circumstances. If you have any questions, please call the office at . * Resume previous home medications unless otherwise instructed TEDs/Elastic Stockings: The white elastic stockings help limit swelling and prevent blood clots from forming in your legs.~ The more you wear them, the more they work. Wear them for six weeks. Dressing Care: The dressing can be changed after physical therapy on postop day #1. Daily dry dressing changes for a few days, especially if the incision is still draining some. If the incision is not draining then you may leave the christine open to air. If there is a little bit of drainage or if the christine are getting stuck on your clothing then cover the incision with a dry dressing. The christine will be removed at your 2 week follow-up appointment. Showering: You may shower 5 days from the day of surgery as long as the incision is no longer draining. You may shower with the christine exposed. Let soapy water run over the christine and pat them dry. Do not scrub or soak the incision. Things To Watch For: * Drainage from the incision site that occurs more than one week after your surgery. * Increased redness at the incision site. * Fever above 102 degrees Fahrenheit. * Unusual chest pain or shortness of breath. * Call [facility] at with any of the above problems Follow-Up Visit: Follow-up with Dr. Blanco's PA (Rashawn Donato) 2-3 weeks after your day of surgery. He will remove your christine and answer any questions. If you have any additional questions or concerns, Dr Blanco is usually in the office at the same time and will be available An appointment was probably scheduled when you signed-up for surgery in the office. If you have any questions call Office Instructions: More detailed instructions as well as Frequently Asked Questions were provided in a folder by our office when you signed-up for surgery. Please review these instructions when you get home. If you have any further questions or concerns, please feel free to call the office at [phone] Pending Studies at Discharge: No Stand-Alone Forms: Anesthesia/Sedation, Adult, My [facility] Medications and DC Order Prescriptions: New oxycodone-acetaminophen 5-325 mg tablet 1 tab PO Q6H PRN (Reason: pain) Qty: 30 RF: 0 ondansetron HCl [Zofran] 4 mg tablet 4 mg PO Q8H PRN (Reason: nausea and vomiting) Qty: 10 RF: 0 celecoxib [Celebrex] 200 mg capsule 200 mg PO BID 14 Days Qty: 28 RF: 0 aspirin [Adult Aspirin Regimen] 81 mg tablet,delayed release (DR/EC) 81 mg PO BID Qty: 84 RF: 0 Continued (DME) Wheeled Walker Misc See Rx Instructions .MEDSUPPLY Qty: 1 RF: 0 atorvastatin 40 mg Tablet 40 mg PO QAM RF: 0 levothyroxine 50 mcg Tablet 50 mcg PO QAM RF: 0 vitamin B complex Capsule 1 cap PO QAM RF: 0 PreserVision AREDS [id number] Capsule 1 cap PO BID RF: 0 cholecalciferol (vitamin D3) [Vitamin D3] 125 mcg (5,000 unit) Tablet 125 mcg PO QAM RF: 0 acetaminophen 500 mg Tablet 1,000 mg PO Q6H PRN (Reason: Pain) RF: 0 Krames/Other Patient Handouts: DVT Post Op Prevention Admission Data Admit Date/Time: 10/14/21 13:30 Attending Provider: Rashawn Blanco Admit Provider: Rashawn Blanco Primary Care Provider: Manasa Moreno
[2021-10-15] MEDS: DOCUSATE SODIUM 100 MG CAP PO SCH (07:50)
[2021-10-15] MEDS: ASPIRIN 81 MG ECTAB PO SCH (07:50)
[2021-10-15] MEDS ORDERED: dexAMETHasone 4 MG TAB PO SCH (08:00)
[2021-10-15] MEDS ORDERED: MULTIVITAMIN TAB PO SCH (09:00)
== END 2021-10-15 11:48 | disposition home health service (06) ==
LOC: ASU 05:06 → 3E 05:06

== ENCOUNTER 2025-05-18 07:51 | Observation (INO) ==
--- NOTE | 2025-03-23 12:18 | PAT Medication Instructions ---
Medication Instructions Date of Service March 23, 2025 Home Medications atorvastatin 40 mg tablet 40 mg PO QAM levothyroxine 50 mcg tablet 50 mcg PO QAM vitamin B complex 1 cap PO QAM PreserVision AREDS 1 cap PO BID amoxicillin 500 mg tablet 2,000 mg PO ONCE PRN prophylaxis apixaban 5 mg tablet (Eliquis) 5 mg PO BID azathioprine 50 mg tablet (Imuran) 100 mg PO QAM metoprolol tartrate 25 mg tablet 25 mg PO BID Continue as directed amoxicillin 500 mg tablet 2,000 mg PO ONCE PRN prophylaxis ASK your prescriber and surgeon apixaban 5 mg tablet (Eliquis) 5 mg PO BID azathioprine 50 mg tablet (Imuran) 100 mg PO QAM STOP taking 2 weeks before surgery (or as soon as possible if surgery is within 2 weeks) PreserVision AREDS 1 cap PO BID DO NOT take the morning of surgery vitamin B complex 1 cap PO QAM Take morning of surgery With a small sip of water, OTHERWISE NOTHING TO EAT OR DRINK AFTER MIDNIGHT: atorvastatin 40 mg tablet 40 mg PO QAM levothyroxine 50 mcg tablet 50 mcg PO QAM metoprolol tartrate 25 mg tablet 25 mg PO BID Take evening before surgery metoprolol tartrate 25 mg tablet 25 mg PO BID Other Notes If you have any questions please call us at [phone] or [phone] or [phone] or [phone]
--- NOTE | 2025-04-04 12:00 | Anesthesiology Consultation ---
Date of Service April 04, 2025 Assessment & Plan (1) Encounter for pre-operative examination: - patient reports awareness during right TKA and that did not go home same day due to persistence of spinal block. She expresses would prefer spinal block with sedation for upcoming procedure, plans to have ultimate discussion with assigned anesthesiologist nilam CARTER. SAB and epidural are marked in right column, but SAB is marked in neuraxial area of records. L3-L4 2 attempts + PNB. There is separate epidural procedure note. "Pt had coughing episode without events. O2 sat decreased 85% propofol stopped. Mask vent...O2 sat 98%. Dr. Urbina to room. HR 130. BP stable. Treated with [?]. Patient denies any complaints." - cardiology clearance 03/22/25 [facility]: "...Reasonable from a cardiac perspective to hold apixaban for 2-3 days prior to procedure..." - cardiology office visit 12/01/24 [facility]: "...referred to EP due to abnormal zio patch...paroxysmal atrial flutter started on metoprolol and eliquis...was having nervous like spells...would stop and do some deep breathing and this would calm everything down...one night she woke up in her sleep with the palpitations and it took a lot longer to calm down...wore a zio patch for these symptoms and did have some of the symptoms when wearing the monitor...started on metoprolol and eliquis due to the monitor not being able to exclude atrial flutter and this has improved the symptoms...EP f/u 6 months..." - Patient and her expressed preference that she be planned to remain overnight for this procedure. Chart Review Chart Review: Acceptable Risk for Surgery and Patient seen in Pre Admission Testing Teaching & Discussion Pre-Anesthesia Teaching/Discussion Notes: Instructed NPO after midnight before surgery, except medications with 15 cc of water. Medication instructions provided according to the PAT guidelines. History Surgery Operation Date: 05/18/25 08:00 Proposed Procedures p Left Total Knee Arthroplasty - Rashawn Blanco DO Height/Weight Height: 5 ft 5 in Weight: 90.3 kg Allergies Allergy/AdvReac Type Severity Reaction Status Date / Time No Known Allergies Allergy Verified 03/22/25 13:29 Medications Home Medications Medication Instructions Recorded Confirmed Last Taken atorvastatin 40 mg tablet 40 mg PO QAM 09/15/21 03/22/25 05/19/22 levothyroxine 50 mcg tablet 50 mcg PO QAM 09/15/21 03/22/25 05/19/22 vitamin B complex 1 cap PO QAM 09/15/21 03/22/25 05/19/22 vitamins A,C,Z-ghpa-ipezlp 4,296 1 cap PO BID 09/15/21 03/22/25 05/19/22 mcg-226 mg-90 mg capsule (PreserVision AREDS) amoxicillin 500 mg tablet 2,000 mg PO ONCE PRN prophylaxis 04/30/22 03/22/25 Unknown apixaban 5 mg tablet (Eliquis) 5 mg PO BID 03/22/25 03/22/25 Unknown azathioprine 50 mg tablet (Imuran) 100 mg PO QAM 03/22/25 03/22/25 Unknown metoprolol tartrate 25 mg tablet 25 mg PO BID 03/22/25 03/22/25 Unknown Additional Notes: It was corrected on provided medication instructions that apixaban is to be stopped 72 hours prior to surgery if okay with prescriber, patient is to call prescriber. She verbalized understanding and denied questions or concerns. Past Medical History Medical History (Updated 04/04/25 @ 14:14 by Angelina De Leon PA-C) Anxiety Arthritis Atrial flutter reason for Eliquis, controlled w/ Metoprolol, follows w/ Dr Soria Autoimmune hepatitis currently being treated w/ Imuran Awareness under anesthesia w/ knee replacement History of skin cancer s/p multiple excisions face, back and legs Hyperlipidemia Hypothyroidism Vertigo Hx, occasional flares, no recent issues Patient denies h/o stroke, seizures, heart attack, heart failure, DM, HTN, blood clots/DVTs or blood transfusions. Exercise / Class Metabolic Activity II 4-5 Yardwork/Stairs/Walk up hill (denies chest discomfort or shortness of breath with one flight of stairs) Past Family History Family History Brother Family history of diabetes mellitus Past Surgical History Surgical History (Updated 04/04/25 @ 14:14 by Angelina De Leon PA-C) History of colonoscopy x2 History of herniorrhaphy AGE 7 History of right cataract extraction Hx of left cataract extraction Hx of total knee replacement (2020) rt. Past Anesthesia History No Family Hx of Anesthesia Complications and Other (awareness during right TKA) History of PONV No Hx of PONV and No Hx of Motion Sickness Social History Smoking Status: Former smoker tobacco type: cigarettes Do You Dip or Chew Tobacco: No Smoking End Date: quit 50 yrs ago Hx Alcohol Use: No (none since liver dx) Alcohol type: wine and hard liquor alcohol intake frequency: a few times a week Hx Substance Use: No substance use type: does not use Review of Systems Patient denies chest pain, shortness of breath, dyspnea on exertion, snoring, witnessed apneas, reflux, fever, chills, cough, wheezing, or palpitations. Physical Exam Vital Signs Vitals BP 135/83 P 62 TEMP 98.2 SP02 94% on RA RESP 18 Physical Patient resting comfortably in chair in no acute distress, alert and oriented, responding appropriately throughout visit Full cervical extension range of motion without pain TMD 3.5 finger breadths Mallampati Score 1 Dentition: several caps/crowns, implants, denies chipped or loose teeth, or bridges Lungs: normal respiratory effort. Good air movement, clear throughout to auscultation, no adventitious breath sounds Cardiac: regular rate and rhythm, no murmurs noted Carotid arteries: negative bruit bilat Lab Results Anesthesia Preop Results Results Anesthesia Widget: WBC 6.12 K/ul (4.8-10.8) 04/04/25 Hgb 12.6 g/dl (12.0-16.0) 04/04/25 Hct 37.1 % (37.0-47.0) 04/04/25 Plt 152 K/uL (130-400) 04/04/25 Na 143 mmol/L (136-145) 04/04/25 K 3.6 mmol/L (3.5-5.1) 04/04/25 Cl 109 mmol/L (98-107) H 04/04/25 CO2 28 mmol/L (21-32) 04/04/25 BUN 16 mg/dl (6-23) 04/04/25 Creat 0.76 mg/dl (0.6-1.2) 04/04/25 Glucose Level 97 mg/dl (70-99(Fasting)) 04/04/25 PT 11.9 Seconds (9.0-12.0) 04/04/25 PTT 32 Seconds (21-31) H 04/04/25 INR 1.1 (0.9-1.1) 04/04/25 Blood Type O Positive 04/04/25 Antibody Screen NEGATIVE 04/04/25 Testing Electrocardiogram Date: 08/29/24 Sinus rhythm with short NJ, rate 65 bpm Chest X-Ray Date: 04/04/25 No acute findings. Echocardiogram Date: 11/19/23 EF 60-64% Normal LV wall motion Moderate cLVH Grade I diastolic dysfunction Mildly enlarged LA Borderline posterior mitral leaflet prolapse Other Testing Cardiac event monitor 09/19/24 Patient had a min HR of 50 bpm, max HR of 197 bpm, and avg HR of 79 bpm. Predominant underlying rhythm was Sinus Rhythm. Slight P wave morphology changes were noted. 103 Supraventricular Tachycardia runs occurred, the run with the fastest interval lasting 5 beats with a max rate of 197 bpm, the longest lasting 37 mins 17 secs with an avg rate of 146 bpm. Supraventricular Tachycardia was detected within +/- 45 seconds of symptomatic patient event(s). Isolated SVEs were occasional (4.3%, 01547), SVE Couplets were rare (<1.0%, 2345), and SVE Triplets were rare (<1.0%, 242). Isolated VEs were occasional (1.3%, 83461), VE Couplets were rare (<1.0%, 73), and no VE Triplets were present. Ventricular Bigeminy and Trigeminy were present. The patient recorded 12 event markers and 13 diary entries, episodes correlated with sinus and sinus tachycardia with atrial andventricular ectopy and 1 episode of supraventricular tachycardia Impression: Sinus rhythm, average rate 79 beats per minute with occasional atrial ectopy and ventricular ectopy and 103 runs of supraventricular tachycardia, atypical atrial flutter not excluded. Longest run greater than 37 minutes
--- NOTE | 2025-05-16 07:40 | History & Physical Report ---
Date of Service May 16, 2025 Assessment & Plan (1) Osteoarthritis of left knee: We will proceed with a left total knee arthroplasty. Postoperatively, she will be started on Eliquis for DVT prophylaxis and kept overnight in the hospital for postop medical management. She plans to use Yostro at discharge. History of Present Illness Chief Complaint: Osteoarthritis of the left knee. Primary Care Provider: Manasa Moreno DO Jaqueline is a pleasant 79-year-old female who I did a right knee replacement on in 2020. She did very well with that. Unfortunately, she is now dealing with a lot of left knee pain. X-rays and clinical exam have been diagnostic for advanced arthritis of the left knee. After failing conservative treatment, she has elected proceed with a left total knee arthroplasty. Allergies Allergy/AdvReac Type Severity Reaction Status Date / Time No Known Allergies Allergy Verified 05/07/25 13:07 Home Medications Medication Instructions Recorded Confirmed Type atorvastatin 40 mg tablet 40 mg PO QAM 09/15/21 05/07/25 History levothyroxine 50 mcg tablet 50 mcg PO QAM 09/15/21 05/07/25 History vitamin B complex 1 cap PO QAM 09/15/21 05/07/25 History vitamins A,C,Q-vgcb-hoilfl 4,296 1 cap PO BID 09/15/21 05/07/25 History mcg-226 mg-90 mg capsule (PreserVision AREDS) amoxicillin 500 mg tablet 2,000 mg PO ONCE PRN prophylaxis 04/30/22 05/07/25 History apixaban 5 mg tablet (Eliquis) 5 mg PO BID 03/22/25 05/07/25 History azathioprine 50 mg tablet (Imuran) 100 mg PO QAM 03/22/25 05/07/25 History metoprolol tartrate 25 mg tablet 25 mg PO BID 03/22/25 05/07/25 History Past Med/Surg History Problem List Osteoarthritis of left knee Encounter for pre-operative examination Hx of vertigo (Chronic) Medical History Awareness under anesthesia w/ knee replacement History of skin cancer s/p multiple excisions face, back and legs Atrial flutter reason for Eliquis, controlled w/ Metoprolol, follows w/ Dr Soria Autoimmune hepatitis currently being treated w/ Imuran Vertigo Hx, occasional flares, no recent issues Arthritis Hypothyroidism Anxiety Hyperlipidemia Surgical History History of right cataract extraction Hx of left cataract extraction Hx of total knee replacement (2020) rt. History of herniorrhaphy AGE 7 History of colonoscopy x2 Family History Brother Family history of diabetes mellitus Social History Smoking Status: Former smoker Tobacco Type: Cigarettes Second Hand Exposure: No; Do You Dip or Chew Tobacco: No; Hx Alcohol Use: No (none since liver dx) Hx Substance Use: No Preferred Language: Israeli Communication Ability: Effective Unit Manager Required: No Beliefs That Will Affect Care: None marital status: Current Living Situation: Spouse current occupational status: retired Feels Safe at Home: Yes Assistive Devices: Glasses Review of Systems All systems reviewed & are unremarkable except as noted in HPI & below. Physical Exam On physical exam of the left knee, she has a slight varus deformity. She has tenderness palpation of the distal medial femoral condyle and over the medial joint line.. Constitutional WD/WN, vitals as above Eyes PERRL, conjunctivae normal, anicteric sclerae ENMT external ear and nose normal, oropharynx normal Neck trachea midline, no thyromegaly Respiratory normal respiratory effort Cardiovascular RRR, no murmur, no edema Gastrointestinal (Abdomen) normal bowel sounds, soft, nontender, no hepatosplenomegaly Psychiatric A+Ox3, euthymic affect Results & Data Results & Data Laboratory Results . Diagnostic Findings X-rays of the left knee show advanced osteoarthritis with joint space narrowing, osteophyte formation, and [id number] tubulation.. PG Care Time/CCT Total # of Minutes Spent Total Time Spent with Patient: Total time spent is greater than 50% in coordination of care (as documented) at patient's floor/unit and/or counseling patient: Coding Level of Care Code None Diagnoses Osteoarthritis of left knee M17.12
[~2025-05-18 07:51] MED LIST changes: +BUPIVACAINE 0.5 % 5 MG/1 ML PF 10ML VIAL ONE; -GLCSC500400; -OMEG10007 PO; +ROPIVACAINE 0.5% 5 MG/ML 30 ML VIAL ONE; -SYN50 PO; -[UNRECOGNIZED DRUG - OTHER]
[2025-05-18] MEDS ORDERED: PHENYLEPHRINE 100MCG/ML 5ML SYR ONE (08:06)
[2025-05-18] MEDS ORDERED: GLYCOPYRROLATE 0.2 MG/ML VIAL ONE (08:06)
[2025-05-18] MEDS ORDERED: ONDANSETRON INJ 2 MG/ML 2 ML VIAL ONE (08:06)
[2025-05-18] MEDS ORDERED: PROPOFOL IV EMULSION 10 MG/ML 20 ML VIAL IV ONE (08:06)
[2025-05-18] MEDS ORDERED: ePHEDrine sulfate 50 MG/5 ML SYR ONE (08:06)
[2025-05-18] MEDS ORDERED: MIDAZOLAM HCL 1 MG/ML 2ML VIAL ONE (08:06)
[2025-05-18] MEDS ORDERED: LIDOCAINE 2% 2 ML VIAL/AMP(20MG/ML) INFIL ONE (08:06)
[2025-05-18] MEDS ORDERED: KETAMINE HCL 10MG/ML SYR ONE (08:07)
[2025-05-18] MEDS: dexAMETHasone**PF** 10 MG/ML VIAL IV SCH (08:38)
[2025-05-18] MEDS: ACETAMINOPHEN 500 MG TAB PO SCH ×2 (08:38→15:15)
[2025-05-18] MEDS: LR 60ML/HR IV SCH (08:38)
[2025-05-18] MEDS: LR 500ML BOLUS, THEN 15ML/HR IV SCH (08:38)
[2025-05-18] MEDS: FAMOTIDINE 20 MG TAB PO SCH (08:38)
[2025-05-18] MEDS: GABAPENTIN 300 MG CAP PO SCH (08:38)
--- NOTE | 2025-05-18 09:20 | History & Physical Bridge Note ---
Date of Service May 18, 2025 History & Physical Bridge Note I have examined the patient, reviewed the History & Physical and in the interval since the performance of the History & Physical I have noted the following changes of clinical significance: no changes noted
[2025-05-18] MEDS ORDERED: ONDANSETRON INJ 2 MG/ML 2 ML VIAL IV PRN ×2 (09:45→14:15)
[2025-05-18] MEDS ORDERED: ePHEDrine sulfate 50 MG/ML AMP IV PRN (09:45)
[2025-05-18] MEDS ORDERED: ATROPINE SULFATE 0.1 MG/ML 10ML SYR IV PRN (09:45)
[2025-05-18] MEDS ORDERED: fentaNYL citrate PF 100 MCG/2 ML VIAL IV PRN (09:45)
[2025-05-18] MEDS ORDERED: fentaNYL citrate PF 100 MCG/2 ML VIAL ONE (09:48)
[2025-05-18] MEDS: TRANEXAMIC ACID 1,000 MG **IV Pre-op IV SCH (09:56)
[2025-05-18] MEDS: ceFAZolin 2000MG 2,000 MG/15 ML SYR IV SCH ×2 (10:15→17:24)
[2025-05-18] MEDS: ORTHO JOINT ANESTHETIC ONE (10:44)
[2025-05-18] MEDS: ROPIV 0.5% 246mg, Ketorolac 30mg, EPINEPHrine 0.5mg in NSS INFIL SCH (10:48)
[2025-05-18] MEDS: TRANEXAMIC ACID 1,000 MG **IV Intra-op IV SCH (11:00)
--- NOTE | 2025-05-18 11:13 | Operative Report ---
PG Post Operative Report Pre & Post Diagnosis Operation Date: 05/18/25 10:00 Pre-Op Diagnosis: Osteoarthritis of left knee Post-Op Diagnosis: Osteoarthritis of left knee I identified the patient and participated in the time-out.: Yes Procedure Operation Date: 05/18/25 10:00 Actual Procedures p Left Total Knee Arthroplasty(Left) - Rashawn Blanco DO Surgeon Rashawn Blanco DO Pattern Puncher Alexandro Juarez PA-C Estimated Blood Loss 50 Findings Consistent with Post-Op Diagnosis Specimens Left femoral and tibial bone Description of Procedure Implants used: I used a Titus Persona total knee arthroplasty system with a size 8 standard PS femur, E tibia, 28 oval patella, and a size 12 CPS polyethylene bearing. All components were cemented in place with Biomet cement. Jaqueline arrived [facility] for the above procedure. She was seen in the preoperative holding area and the operative extremity was identified and signed. She was given a preoperative antibiotic, TXA, a spinal anesthetic and an adductor nerve block. She was taken back to the operating room and laid on the table in supine position. She was given basic sedation. The operative knee was then prepped and draped in sterile fashion. A timeout was done, and the patient and the operative extremity was properly identified. A midline incision was made directly over the patella. Dissection was taken down to the extensor mechanism. A medial parapatellar arthrotomy was used. The medial retinaculum was released and the fat pad was mostly excised. The knee was flexed and the ACL, PCL, and meniscus were removed. A drill was sent down the center of the femoral canal followed by an intramedullary silvia. Off that silvia a distal femoral cutting block was placed. 9 mm was resected off the distal femur at 5 of valgus. A posterior referencing AP sizing guide was then placed on the distal femur. The femur measured to be a size 8. 2 drill holes were placed in 3 of external rotation. A 4-in-1 cutting block was then impacted into place. Anterior, posterior, and chamfer cuts were then made. The proximal tibia was then exposed. An external tibial alignment guide was placed. A tibial cut guide was then anchored in place and the proximal tibia was then resected. The posterior aspect of the knee was then opened up and any additional meniscus fragments and osteophytes were removed. The tibia measured to be a size E. The tibial plate was then placed in the appropriate rotation and the tibia was drilled and punched. Trial components were then placed. I used a size 12 CPS polyethylene insert. The knee was brought through a full range of motion and felt to be stable. The peg holes for the femoral component were then drilled. The patella was then everted and 9 mm was resected off the posterior aspect of the patella. The patella measured to be a size 28 oval. 3 peg holes were then drilled. A trial patella was placed. The knee was once again brought through a full range of motion and felt to be stable. Trial components were then removed. The surrounding soft tissues were injected with 100 cc of an orthopedic pain control cocktail. All components were then cemented into place with Biomet cement. The final polyethylene insert was then snapped into place. Once cement was dry the tourniquet was deflated. Hemostasis was obtained. A dilute betadyne lavage was then done for 3 minutes. The joint was then irrigated with normal saline solution. The medial parapatellar arthrotomy was then closed with #1 Vicryl suture. The skin was closed with 2-0 Vicryl, 3-0V lock suture, and christine. A soft compressive dressing was placed. She was then transferred to a hospital bed and taken to the postanesthesia care unit in stable condition. She tolerated the procedure well. Alexandro Juarez PA-C, was present for the entire procedure. He was critical for patient positioning, prepping, draping, retraction exposure, wound closure and application of sterile dressing. I attest to the content of the Intraoperative Record and any orders documented therein. Any exceptions are noted below.
--- NOTE | 2025-05-18 11:49 | XRay Report ---
XR knee LT 1 or 2V routine CLINICAL HISTORY: Surgical Post Op COMPARISON: None FINDINGS: Left knee prosthesis shows no hardware complication. There is expected soft tissue gas. IMPRESSION: Unremarkable postoperative exam. ACT 112: Negative or not required by law. Electronically signed by: Patrick Johnson M.D. 05/18/2025 11:47 AM
--- NOTE | 2025-05-18 13:59 | Anesthesiology Progress Note ---
Date of Service May 18, 2025 Anesthesia Post Procedure Vital Signs Vital Signs: Temp Pulse Pulse Resp BP Pulse Ox O2 Del Method 05/18/25 13:50 69 20 136/62 95 Nasal Cannula 05/18/25 13:40 64 19 135/61 95 Nasal Cannula 05/18/25 13:30 83 20 140/73 94 Nasal Cannula 05/18/25 13:20 70 20 124/71 94 Nasal Cannula 05/18/25 13:10 74 12 132/72 96 Nasal Cannula 05/18/25 13:00 97.5 F L 76 20 137/70 96 Nasal Cannula 05/18/25 12:50 78 19 123/65 95 Nasal Cannula 05/18/25 12:40 59 L 16 122/67 95 Nasal Cannula 05/18/25 12:30 74 18 130/69 95 Nasal Cannula 05/18/25 12:20 61 18 134/67 95 Nasal Cannula 05/18/25 12:10 61 18 127/66 94 Nasal Cannula 05/18/25 12:00 75 21 135/68 93 Nasal Cannula 05/18/25 11:50 79 18 130/73 94 Room Air 05/18/25 11:40 83 23 127/65 95 Oxymask 05/18/25 11:30 97.2 F L 87 19 122/65 93 Oxymask 05/18/25 08:21 97.9 F 59 L 20 165/84 H 93 Room Air O2 Flow Rate 05/18/25 13:50 2 05/18/25 13:40 2 05/18/25 13:30 2 05/18/25 13:20 2 05/18/25 13:10 2 05/18/25 13:00 2 05/18/25 12:50 2 05/18/25 12:40 2 05/18/25 12:30 2 05/18/25 12:20 2 05/18/25 12:10 2 05/18/25 12:00 2 05/18/25 11:50 05/18/25 11:40 4 05/18/25 11:30 4 05/18/25 08:21 Transfer of Care Handoff Completed per policy Notes Mental Status: alert / awake / arousable and participated in evaluation Patient Amnestic to Procedure: Yes Nausea / Vomiting: adequately controlled Pain: adequately controlled Airway Patency, RR, SpO2: stable & adequate BP & HR: stable & adequate Hydration State: stable & adequate Neuraxial Anesthesia: was administered and sensory block is resolving Anesthetic Complications: no major complications apparent and Pt Satisfied with anesthetic care
[2025-05-18] MEDS ORDERED: HYDROmorphone INJ 0.5 MG/0.5 ML SYR IV PRN (14:15)
[2025-05-18] MEDS ORDERED: bisacodyL 10 MG SUPP PR PRN (14:15)
[2025-05-18] MEDS ORDERED: diphenhydrAMINE Capsule 25 MG CAP PO PRN (14:15)
[2025-05-18] MEDS ORDERED: NALOXONE HCL 0.4 MG/1 ML VIAL/CARP IV PRN (14:15)
[2025-05-18] MEDS ORDERED: METOCLOPRAMIDE HCL INJ 5 MG/ML 2 ML VIAL IV PRN (14:15)
[2025-05-18] MEDS ORDERED: MAGNESIUM HYDROXIDE SUSP 30 ML UDC PO PRN (14:15)
[2025-05-18] MEDS: KETOROLAC TROMETHAMINE 15 MG/ML VIAL IV SCH (15:15)
[2025-05-18] MEDS: SODIUM CHLORIDE 0.9% 1,000 ML IV SCH (15:15)
[2025-05-18] MEDS: SENNA 8.6 MG TAB PO SCH (20:03)
[2025-05-18] MEDS: oxyCODONE HCL IR 5 MG TAB (IMMEDIATE RELEASE) PO PRN (20:03)
[2025-05-18] MEDS: DOCUSATE SODIUM 100 MG CAP PO SCH (20:03)
[2025-05-18] MEDS: METOPROLOL TARTRATE 25 MG TAB PO SCH (20:04)
[2025-05-19 07:12] VITALS: BP 132/80; PULSE 63; RESP 16; TEMP 97.9; O2SAT 91
--- NOTE | 2025-05-19 07:14 | Orthopedic Progress Note ---
Date of Service May 19, 2025 Assessment & Plan (1) Status post total left knee replacement: Overall she is doing fairly well. She is not having much pain in the left knee. She will be seen by physical therapy today for ambulation and range of motion exercises. She is on Eliquis for DVT prophylaxis. She can be discharged to home later today. The nursing staff can change the Rolly wrap after physical therapy. She will follow-up with orthopedics in 2 weeks. Zoran Parsons was seen examined bedside this morning. Overall she is doing fairly well. She is not having much pain in the left knee. She has been up and ambulating to the bathroom. She is no complaints.. Review of Systems All systems reviewed & are unremarkable except as noted in HPI & below. Physical Exam On physical exam of the left knee, the dressing is clean and dry. Her leg is out full extension. She has active dorsiflexion plantarflexion of her left ankle.. Results & Data Results & Data Laboratory Results . Diagnostic Findings Postoperative x-rays of the left knee show the prosthesis to be in anatomic alignment without any evidence of fracture complication, or loosening.. PG Care Time/CCT Total # of Minutes Spent Total Time Spent with Patient: Total time spent is greater than 50% in coordination of care (as documented) at patient's floor/unit and/or counseling patient: Coding Level of Care Code 72969 Post Operative Follow-Up Diagnoses Status post total left knee replacement Z96.652
[2025-05-19] MEDS: dexAMETHasone 4 MG TAB PO SCH (07:53)
[2025-05-19] MEDS: azaTHIOprine 50 MG TAB PO SCH (07:59)
[2025-05-19] MEDS: APIXABAN 5 MG TABLET PO SCH (07:59)
[2025-05-19] MEDS: ATORVASTATIN 40 MG TAB PO SCH (08:00)
[2025-05-19] MEDS: MULTIVITAMIN TAB PO SCH (08:00)
[2025-05-19] MEDS: LEVOTHYROXINE SODIUM 50 MCG TABLET PO SCH (08:00)
== END 2025-05-19 11:08 | disposition home or self-care (01) ==
LOC: ASU 07:51 → 3W 07:51